=== PATIENT | male | born 1960 | race Caucasian/White ===

== ENCOUNTER 2017-09-01 11:01 | Inpatient (IN) | payer BC ==
[2017-09-01 12:02] LABS: BASO % 0.2 % (0.0-1.0); EOS # 0.2 10^3/uL (0.0-0.50); EOS % 2.3 % (0.0-3.0); HEMATOCRIT 46.7 % (42.0-52.0); HEMOGLOBIN 15.8 g/dl (13.5-17.5); IMMATURE GRANULOCYTE % 0.2 % (0-3.0); LYMPH # 2.6 10^3/uL (1.5-4.5); LYMPH % 30.6 % (24.0-44.0); MEAN CORPUSCULAR HGB CONC 33.8 g/dl (32.0-36.5); MEAN CORPUSCULAR VOLUME 85.8 fl (80.0-96.0); MONO # 0.7 10^3/uL (0.0-0.8); NEUTROPHILS # 4.9 10^3/uL (1.8-7.7); NEUTROPHILS % 58.7 % (36.0-66.0); PLATELET COUNT, AUTOMATED 170 10^3/uL (150-450); RED BLOOD COUNT 5.44 10^6/uL (4.30-6.10); RED CELL DISTRIBUTION WIDTH 13.2 % (11.5-14.5); WHITE BLOOD COUNT 8.4 10^3/uL (4.0-10.0)
[2017-09-01 12:03] LABS: VENOUS BASE EXCESS -9.4 (-2.0-2.0); VENOUS HCO3 16.2 MEQ/L (23.0-27.0); VENOUS O2 SATURATION 79.9 % (60.0-80.0); VENOUS PARTIAL PRESSURE CO2 34.8 mmHg (38.0-50.0); VENOUS PARTIAL PRESSURE O2 44.1 mmHg (30.0-50.0); VENOUS PH 7.286 UNITS (7.330-7.430); VENOUS STANDARD HCO3 16.8 MEQ/L; VENOUS TOTAL CO2 17.3 MEQ/L (24.0-28.0)
[2017-09-01] MEDS: NS 1,000 ML IV ×6 (12:08→18:27)
[2017-09-01 12:15] LABS: OSMOLALITY SERUM 311 MOSM/KG (275-295)
[2017-09-01 12:21] LABS: ALBUMIN 3.8 GM/DL (3.2-5.2); ALKALINE PHOSPHATASE 93 U/L (45-117); ALT/SGPT 47 U/L (12-78); ANION GAP 15 MEQ/L (8-16); AST/SGOT 16 U/L (7-37); BILIRUBIN,DIRECT < 0.1 MG/DL (0.0-0.2); BILIRUBIN,TOTAL 0.5 MG/DL (0.2-1.0); BLOOD UREA NITROGEN 22 MG/DL (7-18); CALCIUM LEVEL 8.7 MG/DL (8.5-10.1); CARBON DIOXIDE LEVEL 17 MEQ/L (21-32); CHLORIDE LEVEL 103 MEQ/L (98-107); CREATININE FOR GFR 1.22 MG/DL (0.70-1.30); GLOMERULAR FILTRATION RATE > 60.0 (>56); GLUCOSE, FASTING 355 MG/DL (70-100); KETONE, URINE AUTO RFX 2+ mg/dL (NEGATIVE); LEUKOCYTE ESTERASE UR AUTO RFX NEGATIVE (NEGATIVE); LIPASE 834 U/L (73-393); MUCUS, URINE RFX SMALL (NEGATIVE); NITRITE, URINE AUTO RFX NEGATIVE (NEGATIVE); PHOSPHORUS LEVEL 2.7 MG/DL (2.5-4.9); RBC, URINE AUTO RFX 2 /HPF (0-3); SODIUM LEVEL 135 MEQ/L (136-145); SPECIFIC GRAVITY UR AUTO RFX 1.031 (1.002-1.035); SQUAM EPITHELIAL CELL UR AURFX 0 /HPF (0-6); TOTAL PROTEIN 7.6 GM/DL (6.4-8.2); WBC, URINE AUTO RFX 2 /HPF (0-3)
[2017-09-01 12:22] LABS: ACETONE/KETONE > 46.00 MG/DL (<2.81)
[2017-09-01 12:26] LABS: ESTIMATED AVERAGE GLUCOSE 266 MG/DL (60-110); HEMOGLOBIN A1c 10.9 %
[2017-09-01] MEDS ORDERED: ISOVUE-370 76% 100ML VIAL (Q9967) As Ordered (12:55)
[2017-09-01 13:05] LABS: BEDSIDE GLUCOSE 310 MG/DL (70-105)
[2017-09-01 13:06] LABS: LACTIC ACID SEPSIS PROTOCOL 0.3 MMOL/L (0.4-2.0)
[2017-09-01 13:20] LABS: ABG STANDARD HCO3 17.1 MEQ/L (22.0-26.0)
[2017-09-01 13:24] LABS: ABG BASE EXCESS -9.3 (-2.0-2.0); ABG HCO3 14.6 MEQ/L (22.0-26.0); ABG O2 SATURATION 98.5 % (95.0-99.0); ABG PARTIAL PRESSURE CO2 27.2 mmHg (35.0-45.0); ABG PARTIAL PRESSURE O2 119.4 mmHg (75.0-100.0); ABG TOTAL CO2 15.4 MEQ/L (22.0-29.0); ABG pH (ARTERIAL) 7.347 UNITS (7.350-7.450)
[2017-09-01] MEDS ORDERED: GLUCAGON FOR INJ 1 MG VIAL (J1610) SC (14:00)
[2017-09-01] MEDS ORDERED: DEXTROSE 50% 50 ML SYRINGE IV (14:00)
[2017-09-01] MEDS ORDERED: ONDANSETRON 4MG/2ML VIAL (J2405) IV (14:00)
[2017-09-01] MEDS ORDERED: GLUCOSE 4 GM CHEW TABLET PO (14:00)
[2017-09-01] MEDS: LEVEMIR (INSULIN DETEMIR) 1 UNITS/0.01ML SC (14:46)
[2017-09-01] MEDS ORDERED: PANTOPRAZOLE 40MG INJ (PROTONIX) (C9113) IV (15:00)
[2017-09-01] MEDS ORDERED: POLYVINYL ALCOHOL OPHTH SOLN 15 ML(LIQUITEARS) OU (15:30)
[2017-09-01] MEDS: HYDROcodone/APAP LIQUID 7.5-325MG 15ML UDC (LORTAB ELIXIR) PO ×2 (15:41→20:39)
[2017-09-01] MEDS ORDERED: IPRATROPIUM 0.5MG/ALBUTEROL 2.5MG INH SOL UD 3ML (DUONEB)(J7620) NEB (16:45)
[2017-09-01 17:57] LABS: BEDSIDE GLUCOSE 259 MG/DL (70-105)
[2017-09-01 18:12] LABS: ANION GAP 10 MEQ/L (8-16); BLOOD UREA NITROGEN 17 MG/DL (7-18); CALCIUM LEVEL 7.6 MG/DL (8.5-10.1); CARBON DIOXIDE LEVEL 20 MEQ/L (21-32); CHLORIDE LEVEL 110 MEQ/L (98-107); CREATININE FOR GFR 0.99 MG/DL (0.70-1.30); GLOMERULAR FILTRATION RATE > 60.0 (>56); GLUCOSE, FASTING 266 MG/DL (70-100); POTASSIUM SERUM 3.9 MEQ/L (3.5-5.1); SODIUM LEVEL 140 MEQ/L (136-145)
[2017-09-01] MEDS: HumaLOG INSULIN (NovoLOG) PER UNIT SC ×2 (18:26→20:40)
[2017-09-01] MEDS: GABAPENTIN 300 MG CAP PO ×2 (18:27→20:41)
[2017-09-01] MEDS: HEPARIN SOD (PORCINE) 5000 UNITS/ML VIAL SC ×2 (18:27→21:39)
[2017-09-01] MEDS ORDERED: METAMUCIL (PSYLLIUM) PACKET PO (19:00)
[2017-09-01 20:19] LABS: BEDSIDE GLUCOSE 309 MG/DL (70-105)
[2017-09-01] MEDS: NS 0.45% 1,000 ML IV (20:20)
[2017-09-01] MEDS: SYMBICORT 160/4.5MCG INHALER 6GM INH (20:34)
[2017-09-01] MEDS: PANTOPRAZOLE 40MG INJ (PROTONIX) (C9113) IV (20:39)
[2017-09-01] MEDS: ALLOPURINOL 300 MG TAB PO (20:41)
[2017-09-01] MEDS: METAMUCIL (PSYLLIUM) PACKET PO (21:00)
[2017-09-01] MEDS: MIRALAX *UNIT DOSE* 17GM PACKET PO (21:40)
[2017-09-01 23:03] LABS: ANION GAP 7 MEQ/L (8-16); BLOOD UREA NITROGEN 17 MG/DL (7-18); CALCIUM LEVEL 7.6 MG/DL (8.5-10.1); CARBON DIOXIDE LEVEL 23 MEQ/L (21-32); CHLORIDE LEVEL 110 MEQ/L (98-107); CREATININE FOR GFR 1.05 MG/DL (0.70-1.30); GLOMERULAR FILTRATION RATE > 60.0 (>56); GLUCOSE, FASTING 260 MG/DL (70-100); POTASSIUM SERUM 3.7 MEQ/L (3.5-5.1); SODIUM LEVEL 140 MEQ/L (136-145)
[2017-09-02] MEDS: NS 0.45% 1,000 ML IV ×4 (01:35→21:59)
[2017-09-02 03:30] LABS: BASO % 0.3 % (0.0-1.0); EOS # 0.3 10^3/uL (0.0-0.50); EOS % 4.4 % (0.0-3.0); HEMATOCRIT 37.1 % (42.0-52.0); IMMATURE GRANULOCYTE % 0.3 % (0-3.0); LYMPH # 2.7 10^3/uL (1.5-4.5); LYMPH % 45.5 % (24.0-44.0); MEAN CORPUSCULAR HEMOGLOBIN 28.6 pg (27.0-33.0); MEAN CORPUSCULAR HGB CONC 33.4 g/dl (32.0-36.5); MEAN CORPUSCULAR VOLUME 85.5 fl (80.0-96.0); MONO # 0.6 10^3/uL (0.0-0.8); MONO % 9.3 % (0.0-5.0); NEUTROPHILS # 2.4 10^3/uL (1.8-7.7); NEUTROPHILS % 40.2 % (36.0-66.0); PLATELET COUNT, AUTOMATED 134 10^3/uL (150-450); RED BLOOD COUNT 4.34 10^6/uL (4.30-6.10); RED CELL DISTRIBUTION WIDTH 13.1 % (11.5-14.5); WHITE BLOOD COUNT 5.9 10^3/uL (4.0-10.0)
[2017-09-02 03:35] LABS: HEMOGLOBIN 12.4 g/dl (13.5-17.5)
[2017-09-02 03:48] LABS: ALBUMIN/GLOBULIN RATIO 1.11 (1.00-1.93); ALKALINE PHOSPHATASE 70 U/L (45-117); ALT/SGPT 35 U/L (12-78); AMYLASE 53 U/L (25-115); ANION GAP 12 MEQ/L (8-16); AST/SGOT 18 U/L (7-37); BILIRUBIN,TOTAL 0.3 MG/DL (0.2-1.0); BLOOD UREA NITROGEN 15 MG/DL (7-18); CALCIUM LEVEL 7.6 MG/DL (8.5-10.1); CARBON DIOXIDE LEVEL 19 MEQ/L (21-32); CHLORIDE LEVEL 110 MEQ/L (98-107); CREATININE FOR GFR 0.84 MG/DL (0.70-1.30); GLOMERULAR FILTRATION RATE > 60.0 (>56); GLUCOSE, FASTING 216 MG/DL (70-100); LIPASE 439 U/L (73-393); POTASSIUM SERUM 3.5 MEQ/L (3.5-5.1); SODIUM LEVEL 141 MEQ/L (136-145); TOTAL PROTEIN 5.7 GM/DL (6.4-8.2)
[2017-09-02] MEDS: HYDROcodone/APAP LIQUID 7.5-325MG 15ML UDC (LORTAB ELIXIR) PO ×3 (05:35→17:17)
[2017-09-02] MEDS: HEPARIN SOD (PORCINE) 5000 UNITS/ML VIAL SC ×3 (05:36→21:56)
[2017-09-02] MEDS: METAMUCIL (PSYLLIUM) PACKET PO (08:39)
[2017-09-02] MEDS: HumaLOG INSULIN (NovoLOG) PER UNIT SC ×4 (08:40→21:58)
[2017-09-02] MEDS: LISINOPRIL 20 MG TAB PO (08:40)
[2017-09-02] MEDS: GABAPENTIN 300 MG CAP PO ×4 (08:40→21:59)
[2017-09-02] MEDS: CETIRIZINE (ZyrTEC) 10 MG TAB PO (08:41)
[2017-09-02 11:29] LABS: BEDSIDE GLUCOSE 338 MG/DL (70-105)
[2017-09-02] MEDS: SYMBICORT 160/4.5MCG INHALER 6GM INH ×2 (11:42→21:30)
[2017-09-02] MEDS: PANTOPRAZOLE 40MG TAB (PROTONIX) PO (14:27)
[2017-09-02 16:51] LABS: BEDSIDE GLUCOSE 314 MG/DL (70-105)
[2017-09-02 21:20] LABS: BEDSIDE GLUCOSE 286 MG/DL (70-105)
[2017-09-02] MEDS: LEVEMIR (INSULIN DETEMIR) 1 UNITS/0.01ML SC (21:58)
[2017-09-02] MEDS: ALLOPURINOL 300 MG TAB PO (21:58)
[2017-09-03] MEDS: NS 0.45% 1,000 ML IV ×4 (02:16→21:03)
[2017-09-03] MEDS: HYDROcodone/APAP LIQUID 7.5-325MG 15ML UDC (LORTAB ELIXIR) PO ×3 (06:06→17:44)
[2017-09-03] MEDS: HEPARIN SOD (PORCINE) 5000 UNITS/ML VIAL SC ×3 (06:07→21:03)
[2017-09-03 07:08] LABS: HEMATOCRIT 37.9 % (42.0-52.0); HEMOGLOBIN 12.9 g/dl (13.5-17.5); MEAN CORPUSCULAR VOLUME 85.2 fl (80.0-96.0); PLATELET COUNT, AUTOMATED 134 10^3/uL (150-450); RED BLOOD COUNT 4.45 10^6/uL (4.30-6.10); RED CELL DISTRIBUTION WIDTH 13.2 % (11.5-14.5); WHITE BLOOD COUNT 5.4 10^3/uL (4.0-10.0)
[2017-09-03 07:27] LABS: ALBUMIN 3.2 GM/DL (3.2-5.2); ALBUMIN/GLOBULIN RATIO 1.14 (1.00-1.93); ALKALINE PHOSPHATASE 76 U/L (45-117); ALT/SGPT 46 U/L (12-78); ANION GAP 9 MEQ/L (8-16); AST/SGOT 24 U/L (7-37); BILIRUBIN,TOTAL 0.4 MG/DL (0.2-1.0); BLOOD UREA NITROGEN 10 MG/DL (7-18); CALCIUM LEVEL 8.2 MG/DL (8.5-10.1); CARBON DIOXIDE LEVEL 24 MEQ/L (21-32); CHLORIDE LEVEL 108 MEQ/L (98-107); CREATININE FOR GFR 0.94 MG/DL (0.70-1.30); GLOMERULAR FILTRATION RATE > 60.0 (>56); GLUCOSE, FASTING 291 MG/DL (70-100); POTASSIUM SERUM 4.2 MEQ/L (3.5-5.1); SODIUM LEVEL 141 MEQ/L (136-145)
[2017-09-03] MEDS: SYMBICORT 160/4.5MCG INHALER 6GM INH ×2 (08:44→20:43)
[2017-09-03] MEDS: GABAPENTIN 300 MG CAP PO ×4 (09:22→21:02)
[2017-09-03] MEDS: CETIRIZINE (ZyrTEC) 10 MG TAB PO (09:22)
[2017-09-03] MEDS: HumaLOG INSULIN (NovoLOG) PER UNIT SC ×4 (09:22→21:05)
[2017-09-03] MEDS: LISINOPRIL 20 MG TAB PO (09:23)
[2017-09-03] MEDS: PANTOPRAZOLE 40MG TAB (PROTONIX) PO (09:25)
[2017-09-03 11:22] LABS: BEDSIDE GLUCOSE 364 MG/DL (70-105)
[2017-09-03 11:31] LABS: LIPASE 311 U/L (73-393)
[2017-09-03 11:54] LABS: BEDSIDE GLUCOSE 312 MG/DL (70-105)
[2017-09-03] MEDS ORDERED: METAMUCIL (PSYLLIUM) PACKET PO (12:00)
[2017-09-03] MEDS: MIRALAX *UNIT DOSE* 17GM PACKET PO ×2 (12:52→21:00)
[2017-09-03 17:26] LABS: BEDSIDE GLUCOSE 198 MG/DL (70-105)
[2017-09-03 20:53] LABS: BEDSIDE GLUCOSE 288 MG/DL (70-105)
[2017-09-03] MEDS: ALLOPURINOL 300 MG TAB PO (21:02)
[2017-09-03] MEDS: LEVEMIR (INSULIN DETEMIR) 1 UNITS/0.01ML SC (21:04)
[2017-09-04] MEDS: HEPARIN SOD (PORCINE) 5000 UNITS/ML VIAL SC ×2 (06:00→14:00)
[2017-09-04] MEDS: HYDROcodone/APAP LIQUID 7.5-325MG 15ML UDC (LORTAB ELIXIR) PO ×2 (06:13→12:17)
[2017-09-04 06:55] LABS: HEMATOCRIT 36.6 % (42.0-52.0); HEMOGLOBIN 12.9 g/dl (13.5-17.5); MEAN CORPUSCULAR HEMOGLOBIN 29.5 pg (27.0-33.0); MEAN CORPUSCULAR HGB CONC 35.2 g/dl (32.0-36.5); MEAN CORPUSCULAR VOLUME 83.6 fl (80.0-96.0); PLATELET COUNT, AUTOMATED 147 10^3/uL (150-450); RED BLOOD COUNT 4.38 10^6/uL (4.30-6.10); WHITE BLOOD COUNT 5.5 10^3/uL (4.0-10.0)
[2017-09-04 07:17] LABS: ALBUMIN/GLOBULIN RATIO 1.07 (1.00-1.93); ALKALINE PHOSPHATASE 73 U/L (45-117); ALT/SGPT 52 U/L (12-78); ANION GAP 10 MEQ/L (8-16); AST/SGOT 26 U/L (7-37); BILIRUBIN,TOTAL 0.4 MG/DL (0.2-1.0); BLOOD UREA NITROGEN 11 MG/DL (7-18); CALCIUM LEVEL 7.9 MG/DL (8.5-10.1); CARBON DIOXIDE LEVEL 22 MEQ/L (21-32); CHLORIDE LEVEL 109 MEQ/L (98-107); CREATININE FOR GFR 0.85 MG/DL (0.70-1.30); GLOMERULAR FILTRATION RATE > 60.0 (>56); GLUCOSE, FASTING 269 MG/DL (70-100); POTASSIUM SERUM 3.6 MEQ/L (3.5-5.1); SODIUM LEVEL 141 MEQ/L (136-145); TOTAL PROTEIN 5.8 GM/DL (6.4-8.2)
[2017-09-04] MEDS: HumaLOG INSULIN (NovoLOG) PER UNIT SC ×3 (08:27→17:42)
[2017-09-04] MEDS: CETIRIZINE (ZyrTEC) 10 MG TAB PO (08:32)
[2017-09-04] MEDS: PANTOPRAZOLE 40MG TAB (PROTONIX) PO (08:32)
[2017-09-04] MEDS: LISINOPRIL 20 MG TAB PO (08:32)
[2017-09-04] MEDS: GABAPENTIN 300 MG CAP PO ×3 (08:32→17:42)
[2017-09-04] MEDS: MIRALAX *UNIT DOSE* 17GM PACKET PO (08:34)
[2017-09-04] MEDS: SYMBICORT 160/4.5MCG INHALER 6GM INH (09:02)
[2017-09-04 12:09] LABS: BEDSIDE GLUCOSE 231 MG/DL (70-105)
[2017-09-04] MEDS: NS 0.45% 1,000 ML IV ×2 (12:13→13:40)
[2017-09-04 16:52] LABS: BEDSIDE GLUCOSE 246 MG/DL (70-105)
== END 2017-09-04 18:00 | disposition home or self-care (01) | DRG 420 ==
LOC: M PED 09-02 17:24 → M ED 11:01 → M ED INP 14:11 → M PCU 17:09
DX: E11.10 Type 2 diabetes mellitus with ketoacidosis without coma (principal); D47.2 Monoclonal gammopathy; E11.610 Type 2 diabetes mellitus with diabetic neuropathic arthropathy; I10 Essential (primary) hypertension; K21.9 Gastro-esophageal reflux disease without esophagitis; E66.9 Obesity, unspecified; M10.9 Gout, unspecified; J44.9 Chronic obstructive pulmonary disease, unspecified; J45.909 Unspecified asthma, uncomplicated; R91.8 Other nonspecific abnormal finding of lung field; E11.65 Type 2 diabetes mellitus with hyperglycemia; K59.03 Drug induced constipation; E11.42 Type 2 diabetes mellitus with diabetic polyneuropathy; H04.123 Dry eye syndrome of bilateral lacrimal glands; G47.33 Obstructive sleep apnea (adult) (pediatric); Z79.899 Other long term (current) drug therapy; Z68.33 Body mass index [BMI] 33.0-33.9, adult

== ENCOUNTER 2021-11-16 04:39 | Observation (INO) | payer BC, OTHER ==
[~2021-11-16] VITALS: Ht 193 cm; Wt 110.2 kg
[~2021-11-16 04:39] MED LIST: AKWASOL OU; ALCOPAD17 TOP; ALLO100T; BLOOKIT21 XX; CETI10TA PO; FLON1SPR; GABA-282 PO; GABA-283 PO; GLUC1TES2 XX; HYDR-3716 PO; LANC30MI XX; LEVE1INJ5 SC; LISI20TA33 PO; LISI20TA37 PO; LUBROIN4 OS; METF500T13 PO; MIRA3350 PO; OMEGA-3-ACID; PANT40TA29 PO; PEN1MIS21 SC; REFR1DRO6 OS; SYMB16INH INH; ZYLO300T6 PO
[2021-11-16 06:04] LABS: BASO % 0.3 % (0.0-1.0); EOS # 0.3 10^3/uL (0.0-0.5); EOS % 2.5 % (0.0-3.0); HEMOGLOBIN 14.1 g/dl (13.5-17.5); LYMPH # 2.2 10^3/uL (1.5-5.0); LYMPH % 18.5 % (24.0-44.0); MEAN CORPUSCULAR HEMOGLOBIN 28.8 pg (27.0-33.0); MEAN CORPUSCULAR VOLUME 89.8 fl (80.0-96.0); MONO # 0.6 10^3/uL (0.0-0.8); MONO % 5.3 % (2.0-8.0); NEUTROPHILS # 8.6 10^3/uL (1.5-8.5); PLATELET COUNT, AUTOMATED 185 10^3/uL (150-450); WHITE BLOOD COUNT 11.8 10^3/uL (4.0-10.0)
[2021-11-16 06:14] LABS: INR 0.9; PROTHROMBIN TIME 12.6 SECONDS (12.7-14.5)
[2021-11-16 06:15] LABS: PARTIAL THROMBOPLASTIN TIME 27.3 SECONDS (25.9-37.0)
[2021-11-16 06:47] LABS: ALBUMIN 4.2 GM/DL (3.2-5.2); ALT/SGPT 40 U/L (12-78); BILIRUBIN,DIRECT 0.1 MG/DL (0.0-0.2); BILIRUBIN,TOTAL 0.5 MG/DL (0.2-1.0); BLOOD UREA NITROGEN 20 MG/DL (7-18); CALCIUM LEVEL 9.5 MG/DL (8.8-10.2); CARBON DIOXIDE LEVEL 28 MEQ/L (21-32); CHLORIDE LEVEL 105 MEQ/L (98-107); CREATININE FOR GFR 1.12 MG/DL (0.70-1.30); FREE T4 1.06 NG/DL (0.76-1.46); GLOMERULAR FILTRATION RATE > 60.0 (>49); GLUCOSE, FASTING 115 MG/DL (70-100); POTASSIUM SERUM 3.7 MEQ/L (3.5-5.1); SODIUM LEVEL 140 MEQ/L (136-145)
[2021-11-16 06:50] LABS: CK-MB VALUE MASS 2.8 NG/ML (<3.6); MB/CK RELATIVE INDEX 1.37 (< OR =4)
[2021-11-16] MEDS ORDERED: MORPHINE 2 MG/ML 1ML VIAL IV PRN (07:30)
[2021-11-16] MEDS ORDERED: BOOSTRIX/ADACEL VACCINE (DIPHTH/PERTUSS/ACELL/TETANUS) 0.5ML SYR IM.IMMUN ONE (07:30)
[2021-11-16] MEDS: SYMBICORT 160/4.5MCG INHALER 6GM INH SCH ×2 (08:00→19:12)
[2021-11-16] MEDS ORDERED: ALBUTEROL 90 MCG/ACT 8GM HFA INHALER INH PRN (08:10)
[2021-11-16] MEDS ORDERED: LIDOCAINE W/EPINEPHRINE 1% 20ML VIAL SC ONE (08:10)
[2021-11-16] MEDS: allopurinoL 300 MG TAB PO SCH (09:00)
[2021-11-16] MEDS: MAGNESIUM OXIDE 400MG TAB (MAG-OX) PO SCH (09:00)
[2021-11-16] MEDS: GABAPENTIN 300 MG CAP PO SCH (09:00)
[2021-11-16] MEDS ORDERED: MAGN400T2 PO (10:06)
[2021-11-16] MEDS ORDERED: D3 H10002 PO (10:06)
[2021-11-16] MEDS ORDERED: METF500T13 PO (10:06)
[2021-11-16] MEDS ORDERED: CYAN100050 PO (10:06)
[2021-11-16] MEDS ORDERED: [UNRECOGNIZED DRUG - CODE] PO (10:06)
[2021-11-16] MEDS ORDERED: GABA-282 PO (10:06)
[2021-11-16] MEDS ORDERED: ALLO10TA PO (10:06)
[2021-11-16] MEDS ORDERED: VENTAER INH (10:09)
[2021-11-16] MEDS ORDERED: IBUP1TAB6 PO (10:09)
[2021-11-16] MEDS ORDERED: HOME MED LIST COMPLETE! XX SCH (10:10)
[2021-11-16] MEDS ORDERED: KETOROLAC 30 MG/ML 1ML VIAL IV ONE (12:55)
[2021-11-16 13:05] LABS: RSV AMPLIFICATION NEGATIVE (NEGATIVE)
[2021-11-16] MEDS ORDERED: ACETAMINOPHEN TAB 650MG DOSE (2X325MG) PO PRN (13:15)
[2021-11-16] MEDS ORDERED: PANTOPRAZOLE 40MG TAB (PROTONIX) PO ONE (13:15)
[2021-11-16] MEDS: ALBUTEROL SULFATE 2.5 MG/0.5 ML INH NEB SOLN NEB PRN (15:37)
[2021-11-16 16:00] VITALS: BP 124/73
[2021-11-16] MEDS: KETOROLAC 30 MG/ML 1ML VIAL IV SCH (20:40)
[2021-11-16 20:41] VITALS: BP_SYST 132; BP_SYST 137; BP_SYST 141; BP_DIAS 77; BP_DIAS 78; BP_DIAS 80
[2021-11-16] MEDS ORDERED: GABAPENTIN 300 MG CAP PO SCH (21:00)
[2021-11-17] MEDS: KETOROLAC 30 MG/ML 1ML VIAL IV SCH ×3 (02:09→14:36)
[2021-11-17 06:26] VITALS: BP 111/75
[2021-11-17 06:40] VITALS: BP_SYST 111; BP_SYST 145; BP_SYST 146; BP_DIAS 75; BP_DIAS 90; BP_DIAS 95
[2021-11-17 07:31] LABS: HEMATOCRIT 41.8 % (42.0-52.0); HEMOGLOBIN 13.5 g/dl (13.5-17.5); MEAN CORPUSCULAR HEMOGLOBIN 29.3 pg (27.0-33.0); MEAN CORPUSCULAR HGB CONC 32.3 g/dl (32.0-36.5); MEAN CORPUSCULAR VOLUME 90.7 fl (80.0-96.0); PLATELET COUNT, AUTOMATED 193 10^3/uL (150-450); RED BLOOD COUNT 4.61 10^6/uL (4.30-6.10)
[2021-11-17] MEDS: MAGNESIUM OXIDE 400MG TAB (MAG-OX) PO SCH (08:20)
[2021-11-17] MEDS: GABAPENTIN 300 MG CAP PO SCH (08:20)
[2021-11-17] MEDS: allopurinoL 300 MG TAB PO SCH (08:20)
[2021-11-17] MEDS: SYMBICORT 160/4.5MCG INHALER 6GM INH SCH (08:31)
[2021-11-17] MEDS: ALBUTEROL SULFATE 2.5 MG/0.5 ML INH NEB SOLN NEB PRN (08:53)
[2021-11-17] MEDS ORDERED: PANTOPRAZOLE 40MG TAB (PROTONIX) PO SCH (09:00)
[2021-11-17] MEDS ORDERED: PANT40TA29 PO (10:13)
[2021-11-17] MEDS ORDERED: LISI20TA33 PO (10:13)
[2021-11-17] MEDS ORDERED: KETO10TAB PO (10:13)
[2021-11-17 14:00] VITALS: BP 142/87
== END 2021-11-17 14:55 | disposition home or self-care (01) ==
LOC: M ED 04:39 → M ED INP 04:40 → M MSPAV 15:19
PROVIDERS: ADMIT Internal Medicine Nephrology; ATTEND Internal Medicine Nephrology
DX: R55 Syncope and collapse (principal); R00.1 Bradycardia, unspecified; S22.32XA Fracture of one rib, left side, initial encounter for closed fracture; S01.81XA Laceration without foreign body of other part of head, initial encounter; W01.198A Fall on same level from slipping, tripping and stumbling with subsequent striking against other object, initial encounter; Y92.098 Other place in other non-institutional residence as the place of occurrence of the external cause; Y93.01 Activity, walking, marching and hiking; I10 Essential (primary) hypertension; K21.9 Gastro-esophageal reflux disease without esophagitis; J45.909 Unspecified asthma, uncomplicated; E11.40 Type 2 diabetes mellitus with diabetic neuropathy, unspecified; E11.610 Type 2 diabetes mellitus with diabetic neuropathic arthropathy; J44.9 Chronic obstructive pulmonary disease, unspecified; G47.33 Obstructive sleep apnea (adult) (pediatric); M54.50 Low back pain, unspecified; K57.90 Diverticulosis of intestine, part unspecified, without perforation or abscess without bleeding; D47.2 Monoclonal gammopathy; M10.9 Gout, unspecified; E66.9 Obesity, unspecified; Z79.899 Other long term (current) drug therapy; Z79.51 Long term (current) use of inhaled steroids; Z79.84 Long term (current) use of oral hypoglycemic drugs; Z82.49 Family history of ischemic heart disease and other diseases of the circulatory system
CPT/HCPCS: 12011; 36415; 70450; 71046; 71250; 72125; 80048; 80076; 82550; 82553; 83735; 84439; 84443; 84484; 85025; 85027; 85610; 85730; 87631; 90471; 90715; 93005; 93041; 93306; 93880; 94640; 94760; 96374; 96375; 96376; 99285; J1885; J2270

== ENCOUNTER → 2022-02-02 | Outpatient (CLI) | payer OTHER ==
[~2022-02-02] MED LIST changes: +ALLO10TA PO; +CYAN100050 PO; +D3 H10002 PO; +IBUP1TAB6 PO; +KETO10TAB PO; +MAGN400T2 PO; +VENTAER INH; +[UNRECOGNIZED DRUG - CODE] PO
[2022-02-02 16:59] LABS: FREE T4 1.12 NG/DL (0.89-1.76); THYROID STIMULATING HORMONE 2.026 uIU/ML (0.55-4.78); VITAMIN B12 LEVEL 926 PG/ML (211-911)
[2022-02-02 17:01] LABS: FOLATE > 24.00 NG/ML (>5.4)
[2022-02-07 23:07] LABS: VITAMIN B1 LEVEL WHOLE BLOOD 216.2 nmol/L (66.5-200.0)
== END ==
LOC: M PLALAB 11:23
PROVIDERS: ATTEND Psychiatry & Neurology Neurology
DX: E07.9 Disorder of thyroid, unspecified (principal)

== ENCOUNTER → 2022-02-03 | Outpatient (REF) | payer OTHER ==
[2022-02-09 00:09] LABS: VITAMIN E(ALPHA TOCOPHEROL) 15.5 mg/L (9.0-29.0); VITAMIN E(GAMMA TOCOPHEROL) 0.5 mg/L (0.5-4.9)
== END ==
LOC: M PLALAB 12:53
PROVIDERS: ATTEND Psychiatry & Neurology Neurology
DX: R25.1 Tremor, unspecified (principal); R20.0 Anesthesia of skin; E07.9 Disorder of thyroid, unspecified

== ENCOUNTER 2023-01-15 07:33 | Day surgery (SDC) | payer OTHER ==
[~2023-01-15] VITALS: Ht 193 cm; Wt 111.4 kg
[~2023-01-15 07:33] MED LIST changes: -AKWASOL OU; +ALPH600C3 PO; +ARTIDRO2 OU; +ATOR1TAB19 PO; +COQ150CH PO; +CYAN-1 PO; -CYAN100050 PO; +DIPH-435 PO; +FLUT1BLS2 INH; -GABA-283 PO; +GABA-284 PO; +GLUCTAB64 PO; +INSU100I6 SC; +L-LY500T23 PO; -LEVE1INJ5 SC; +MAG100TA PO; +NS 1,000 ML IV ONE; +PEN-308 SC; -PEN1MIS21 SC; +S-AD200T PO; +TURM500C PO; +[UNRECOGNIZED DRUG - CODE] PO; -[UNRECOGNIZED DRUG - CODE] PO
[2023-01-15 08:44] VITALS: TEMP 98.2
[2023-01-15 09:00] VITALS: BP 124/74; O2SAT 97
== END 2023-01-15 09:33 | disposition home or self-care (01) ==
LOC: M OPP 07:33
PROVIDERS: ATTEND Internal Medicine Gastroenterology
DX: Z86.010 Personal history of colon polyps (principal); D12.6 Benign neoplasm of colon, unspecified; K64.8 Other hemorrhoids; I10 Essential (primary) hypertension; E78.5 Hyperlipidemia, unspecified; E11.40 Type 2 diabetes mellitus with diabetic neuropathy, unspecified; M10.9 Gout, unspecified; M19.90 Unspecified osteoarthritis, unspecified site; J44.9 Chronic obstructive pulmonary disease, unspecified; G47.30 Sleep apnea, unspecified; Z88.5 Allergy status to narcotic agent; Z79.899 Other long term (current) drug therapy; Z82.49 Family history of ischemic heart disease and other diseases of the circulatory system